=== PATIENT | female | born 1985 | race Caucasian/White ===

== ENCOUNTER 2018-05-04 08:42 | Outpatient (CLI) | payer OTHER ==
[2018-05-04] MEDS: BETAMET NA PHOS/AC(6 MG/ML) 2 ML INJ SYG IM (11:47)
== END 2018-05-04 11:55 | disposition home or self-care (01) ==
LOC: OBT 08:42 → L-D 08:43 → OBT 11:55
DX: O26.893 Other specified pregnancy related conditions, third trimester (principal); Z3A.35 35 weeks gestation of pregnancy; N89.8 Other specified noninflammatory disorders of vagina
CPT/HCPCS: 76815; 76818; 96372

== ENCOUNTER 2018-05-05 12:03 | Outpatient (CLI) | payer OTHER ==
[2018-05-05] MEDS ORDERED: BETAMET NA PHOS/AC(6 MG/ML) 2 ML INJ SYG IM ×2 (12:30→13:00)
== END 2018-05-05 13:30 | disposition home or self-care (01) ==
LOC: OBT 12:03 → L-D 12:04 → OBT 13:30
DX: O62.9 Abnormality of forces of labor, unspecified (principal); Z3A.35 35 weeks gestation of pregnancy
CPT/HCPCS: 76816

== ENCOUNTER 2018-06-01 08:03 | Inpatient (IN) | payer OTHER ==
[2018-06-01] MEDS: ONDANSETRON 4 MG INJ IV ×2 (08:22→18:21)
[2018-06-01] MEDS: METOCLOPRAMIDE 10 MG INJ IV (08:30)
[2018-06-01] MEDS ORDERED: MISOPROSTOL 200 MCG TAB PR ×2 (08:30→21:00)
[2018-06-01] MEDS ORDERED: CARBOPROST 250 MCG INJ IM ×2 (08:30→21:00)
[2018-06-01] MEDS ORDERED: OXYTOCIN 30 UNITS/LR 500 ML IV ×3 (08:30→21:00)
[2018-06-01] MEDS: FAMOTIDINE 20 MG INJ IV (08:30)
[2018-06-01] MEDS ORDERED: METHYLERGONOVINE 0.2 MG INJ IM ×2 (08:30→21:00)
[2018-06-01 08:54] LABS: ADD MAN DIFF? NO
[2018-06-01 09:00] LABS: BASOPHILS % 0.2 % (0.0-2.0); EOSINOPHILS # 0.2 10^3/ul (0.0-0.5); HEMOGLOBIN 13.4 g/dl (12.0-16.0); LYMPHOCYTES # 1.5 10^3/ul (0.8-2.9); LYMPHOCYTES % 17.9 % (15.0-51.0); MEAN CORPUSCULAR HEMOGLOBIN 30.1 pg (29.0-33.0); MEAN CORPUSCULAR HGB CONC 35.3 g/dl (32.0-37.0); MEAN CORPUSCULAR VOLUME 85.4 fl (82.0-101.0); MEAN PLATELET VOLUME 11.1 fl (7.4-10.4); MONOCYTE # 0.5 10^3/ul (0.3-0.9); MONOCYTES % 6.4 % (0.0-11.0); NEUTROPHIL # 6.1 10^3/ul (1.6-7.5); NEUTROPHILS % 73.3 % (39.0-77.0); PLATELET COUNT 200 10^3/UL (140-415); RED BLOOD COUNT 4.45 10^6/ul (4.20-5.40); RED CELL DISTRIBUTION WIDTH 13.2 % (11.5-14.5)
[2018-06-01 09:00] LABS: WHITE BLOOD COUNT 8.3 10^3/ul (4.8-10.8)
[2018-06-01 09:19] LABS: INR 0.85; PROTIME 11.7 Sec (11.9-14.9); PT RATIO 0.9
[2018-06-01 09:20] LABS: PARTIAL THROMBOPLASTIN TIME 27.9 Sec (23.0-35.0)
[2018-06-01] MEDS: LACTATED RINGER'S 1,000 ML IV ×2 (09:44→11:10)
[2018-06-01 09:52] LABS: HEPATITIS B SURFACE ANTIGEN NEGATIVE (NEGATIVE)
[2018-06-01] MEDS ORDERED: morphine SULFATE/PF (10 MG/10 ML) INJ (12:50)
[2018-06-01] MEDS ORDERED: OXYTOCIN 10 UNIT INJ (12:51)
[2018-06-01] MEDS ORDERED: HYDROmorphONE 1 MG/5 ML IV SYRINGE IV ×3 (13:00)
[2018-06-01] MEDS ORDERED: KETOROLAC 30 MG INJ IV (13:00)
[2018-06-01] MEDS ORDERED: ONDANSETRON 4 MG INJ IV ×2 (13:00)
[2018-06-01] MEDS ORDERED: ZOLPIDEM 5 MG TAB PO (13:00)
[2018-06-01] MEDS ORDERED: HYDROmorphONE 0.5 MG/0.5 ML SYG IV ×2 (13:00)
[2018-06-01] MEDS ORDERED: FENTAnyl 50 MCG/ML VIAL IV ×2 (13:00)
[2018-06-01] MEDS ORDERED: NALOXONE (0.4 MG/ML) INJ IV (13:00)
[2018-06-01] MEDS ORDERED: DIPHENHYDRAMINE 50 MG INJ IV ×2 (13:00)
[2018-06-01] MEDS: OXYTOCIN 30 UNITS/LR 500 ML IV ×2 (16:14→20:57)
[2018-06-01] MEDS: CEFAZOLIN 2 GM/50 ML (PMX) 50 ML IVPB (16:24)
[2018-06-01] MEDS ORDERED: HYDROCODONE/APAP (5/325) TAB PO ×2 (21:00)
[2018-06-01] MEDS ORDERED: LANOLIN HPA 1 PKT TOP (21:00)
[2018-06-01] MEDS ORDERED: OXYCODONE/ACETAMINOPHEN (5/325) TAB PO ×2 (21:00)
[2018-06-01] MEDS: CEFAZOLIN 1 GM/50 ML (PMX) 50 ML IVPB (21:04)
[2018-06-01 21:09] LABS: RAPID PLASMA REAGIN NONREACTIVE (NR)
[2018-06-02] MEDS: OXYTOCIN 30 UNITS/LR 500 ML IV ×6 (00:35→21:26)
[2018-06-02] MEDS: LACTATED RINGER'S 1,000 ML IV ×3 (01:30→21:25)
[2018-06-02] MEDS: IBUPROFEN 600 MG TAB PO ×5 (06:00→23:33)
[2018-06-02 07:26] LABS: ADD MAN DIFF? NO
[2018-06-02 07:32] LABS: WHITE BLOOD COUNT 8.1 10^3/ul (4.8-10.8)
[2018-06-02 07:32] LABS: BASOPHILS % 0.2 % (0.0-2.0); EOSINOPHILS # 0.1 10^3/ul (0.0-0.5); EOSINOPHILS % 1.5 % (0.0-7.0); HEMATOCRIT 32.6 % (37.0-47.0); HEMOGLOBIN 11.4 g/dl (12.0-16.0); LYMPHOCYTES # 1.2 10^3/ul (0.8-2.9); LYMPHOCYTES % 15.3 % (15.0-51.0); MEAN CORPUSCULAR HEMOGLOBIN 30.3 pg (29.0-33.0); MEAN CORPUSCULAR VOLUME 86.7 fl (82.0-101.0); MEAN PLATELET VOLUME 11.3 fl (7.4-10.4); MONOCYTE # 0.7 10^3/ul (0.3-0.9); MONOCYTES % 8.4 % (0.0-11.0); NEUTROPHIL # 6.1 10^3/ul (1.6-7.5); NEUTROPHILS % 74.4 % (39.0-77.0); PLATELET COUNT 157 10^3/UL (140-415); RED BLOOD COUNT 3.76 10^6/ul (4.20-5.40); RED CELL DISTRIBUTION WIDTH 13.3 % (11.5-14.5)
[2018-06-02] MEDS: SENNA/DOCUSATE NA (8.6MG/50MG) TAB PO ×2 (08:55→21:31)
[2018-06-02] MEDS: KETOROLAC 30 MG INJ IV (12:06)
[2018-06-03] MEDS: LACTATED RINGER'S 1,000 ML IV (01:30)
[2018-06-03] MEDS: OXYTOCIN 30 UNITS/LR 500 ML IV ×2 (02:14)
[2018-06-03] MEDS: IBUPROFEN 600 MG TAB PO ×3 (05:50→17:43)
[2018-06-03] MEDS: SENNA/DOCUSATE NA (8.6MG/50MG) TAB PO ×2 (09:36→20:46)
[2018-06-03] MEDS ORDERED: ALBUTEROL HFA 8 GM INHALER INH (19:30)
[2018-06-04] MEDS: IBUPROFEN 600 MG TAB PO ×3 (00:15→12:16)
[2018-06-04] MEDS: DIPHTH/TET/ACEL PERTUSS (ADULT) 0.5 ML VIAL IM* (08:19)
[2018-06-04] MEDS: SENNA/DOCUSATE NA (8.6MG/50MG) TAB PO (08:56)
== END 2018-06-04 14:43 | disposition home or self-care (01) | DRG 788 ==
LOC: L-D 08:03 → PP1 20:47
PROVIDERS: Obstetrics & Gynecology
PROC: 10D00Z1 Extraction of Products of Conception, Low, Open Approach (ICD-10-PCS; principal; 2018-06-01 10:00)
DX: O34.211 Maternal care for low transverse scar from previous cesarean delivery (principal); Z3A.39 39 weeks gestation of pregnancy; Z37.0 Single live birth
CPT/HCPCS: 85025; 85610; 85730; 86592; 86850; 86900; 86901; 87340; 99464